=== PATIENT | male | born 1950 | race Caucasian/White ===

== ENCOUNTER → 2023-06-12 11:00 | Outpatient (REF) | payer MEDICARE, BC, SELFPAY | LOC: HWRAD 11:00 | PROVIDERS: ATTENDING PHYSICIAN Nurse Practitioner | DX: Z01.818 Encounter for other preprocedural examination (principal); G56.82 Other specified mononeuropathies of left upper limb | CPT/HCPCS: 73030 ==

== ENCOUNTER → 2023-07-27 07:43 | Outpatient (REF) | payer MEDICARE, BC, SELFPAY ==
[2023-07-27 10:29] LABS: % Basophils 0.9 % (0-2); % Eosinophils 2.8 % (0-6); % Immature Granulocytes 0.6 % (0-0.5); % Lymphocytes 18.2 % (20.5-51.1); % Monocytes 7.7 % (1.7-9.3); % Neutrophils 69.8 % (42.2-75.2); Absolute Basophils 0.1 10^3/uL (0-0.2); Absolute Eosinophils 0.2 10^3/uL (0-0.7); Absolute Lymphocytes 1.3 10^3/uL (1.2-3.4); Absolute Monocytes 0.5 10^3/uL (0.1-0.6); Absolute Neutrophils 4.8 10^3/uL (1.4-6.5); Hematocrit 36.3 % (39.0-52.0); Hemoglobin 12.4 g/dL (13.0-18.0); Mean Corp Hgb Conc. 34.2 g/dL (33.0-37.0); Mean Corpuscular Hgb 32.8 pg (27.0-31.0); Mean Platelet Volume 12.1 fL (7.4-10.4); Nucleated Red Blood Cells % 0 % (-); Platelet Count 108 10^3/uL (130-400); Red Blood Cell Count 3.78 10^6/uL (4.70-6.10); Red Cell Dist. Width 12.5 % (11.5-14.5); White Blood Cell Count 6.9 10^3/uL (4.8-10.8)
[2023-07-27 10:48] LABS: ALT (SGPT) 19 U/L (0-50); AST (SGOT) 22 U/L (17-59); Albumin 4.2 g/dl (3.5-5.0); Alkaline Phosphatase 87 U/L (38-126); Blood Urea Nitrogen 17 mg/dl (9-20); Calcium 9.3 mg/dl (8.4-10.2); Carbon Dioxide 23 mmol/L (22-30); Chloride 110 mmol/L (98-107); Glucose 147 mg/dl (70-99); HDL Cholesterol 55 mg/dl; Sodium 138 mmol/L (135-145); Total Bilirubin 0.7 mg/dl (0.2-1.3); Total Protein 7.1 g/dl (6.3-8.2); eGFR > 60.00
[2023-07-27 10:58] LABS: LDL Cholesterol, Calculated 58 mg/dl; Total Cholesterol 136 mg/dl (50-199); Triglyceride 118 mg/dl (10-149); Very Low Density Lipoprotein 23 mg/dl (0-30)
[2023-07-27 11:07] LABS: PSA, Total - Screen 0.26 ng/ml (0.0-4.0); TSH 0.37 uIU/ml (0.47-4.68)
[2023-07-28 14:35] LABS: Glycohemoglobin (HgbA1c) 6.2 % (4.0-5.6)
== END ==
LOC: HWLAB 07:43
PROVIDERS: ATTENDING PHYSICIAN Nurse Practitioner
DX: Z01.818 Encounter for other preprocedural examination (principal); H40.9 Unspecified glaucoma; E11.9 Type 2 diabetes mellitus without complications; I10 Essential (primary) hypertension; K21.9 Gastro-esophageal reflux disease without esophagitis; N40.1 Benign prostatic hyperplasia with lower urinary tract symptoms; Z12.5 Encounter for screening for malignant neoplasm of prostate
CPT/HCPCS: 36415; 80053; 80061; 83036; 84443; 85025; G0103

== ENCOUNTER → 2023-08-16 07:47 | Outpatient (REF) | payer MEDICARE, BC, SELFPAY | LOC: RAD 07:47 | PROVIDERS: ATTENDING PHYSICIAN Physician Assistant Surgical; FAMILY PHYSICIAN Internal Medicine; REFERRING PHYSICIAN Specialist | DX: M75.42 Impingement syndrome of left shoulder (principal); M25.511 Pain in right shoulder | CPT/HCPCS: 76881 ==

== ENCOUNTER → 2024-01-29 07:49 | Outpatient (REF) | payer MEDICARE, BC, SELFPAY ==
[2024-01-29 09:44] LABS: Iron 78 ug/dl (49-181)
[2024-01-29 09:54] LABS: Percent Saturation 26 % (20-50); Total Iron Binding Capacity 294 ug/dl (261-462)
[2024-01-29 10:29] LABS: Glycohemoglobin (HgbA1c) 6.1 % (4.0-5.6)
[2024-01-29 13:01] LABS: Vitamin B12 930 pg/ml (239-931)
== END ==
LOC: HWLAB 07:49
PROVIDERS: ATTENDING PHYSICIAN Internal Medicine Gastroenterology; FAMILY PHYSICIAN Internal Medicine
DX: D50.9 Iron deficiency anemia, unspecified (principal); E11.9 Type 2 diabetes mellitus without complications; Z00.00 Encounter for general adult medical examination without abnormal findings; R53.83 Other fatigue; E78.5 Hyperlipidemia, unspecified; K22.2 Esophageal obstruction
CPT/HCPCS: 36415; 82607; 82728; 83036; 83540; 83550; 84443

== ENCOUNTER → 2024-03-15 07:06 | Outpatient (REF) | payer MEDICARE, BC, SELFPAY | LOC: HWRCS 07:06 | PROVIDERS: ATTENDING PHYSICIAN Internal Medicine Cardiovascular Disease; FAMILY PHYSICIAN Internal Medicine | DX: Z95.0 Presence of cardiac pacemaker (principal); E11.9 Type 2 diabetes mellitus without complications; I10 Essential (primary) hypertension; I49.5 Sick sinus syndrome; Z82.49 Family history of ischemic heart disease and other diseases of the circulatory system; I49.3 Ventricular premature depolarization; I34.0 Nonrheumatic mitral (valve) insufficiency | CPT/HCPCS: 93306 ==

== ENCOUNTER 2024-03-29 07:46 | Day surgery (SDC) | payer MEDICARE, BC, SELFPAY ==
[2024-03-21 10:22] VITALS: BMI 24.4
[2024-03-29] VITALS (9 sets, daily range): BP systolic 128–145; BP diastolic 55–73; BMI 24.1
[2024-03-29 08:55] LABS: Glucose - Point of Care 133 mg/dl (70-99)
--- NOTE | 2024-03-29 11:05 | PTCARENOTE ---
Dr Carbajal at pt bedside speaking to pt.
--- NOTE | 2024-03-29 17:15 | ITS.CL.PACE ---
Change Management Analyst - Pacemaker Implant
Pacemaker Implant
Procedure Report:
Date of Procedure: March 29, 2024.
Procedures: Dual chamber pacemaker generator change. Pacemaker pulse generator explantation and pacemaker pulse generator implantation.
Indication: Pacemaker at [facility] from natural battery depletion. 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
Performing physician: Cedric Carbajal MD, [facility].
Implant: Pacemaker Pulse Generator: Medtronic; Model# [id number]; Serial# [id number].
Explanted Pacemaker Pulse Generator (Implanted 05/10/2013): Medtronic; Model# [id number]; Serial# [id number].
Retained Leads (Implanted 05/10/2013):
RA Lead: Medtronic; Model# [id number]; Serial# [id number].
RV Lead: Medtronic; Model# [id number]; Serial# [id number].
Technique: A time out was performed. The procedure site was identified. The patient was anesthetized by the anesthesia service. Preoperative cefazolin was administered prior to skin incision. The patient was prepped and draped in the usual fashion.
Local anesthetic was applied to the left prepectoral subcutaneous tissue. A 3 inch incision was made over the pulse generator. The capsule was entered with Bovie cautery. The old pacemaker pulse generator was explanted. No Bovie cautery was applied
to the lead system. The leads were appropriately attached to the new device. The pocket was irrigated with antibiotic solution. Hemostasis was excellent. The device and leads were placed in the pocket. The incision was closed in three layers with
absorbable suture. Steri-strips and an Aquacel dressing were applied. The estimated blood loss was less than 5 mL. There were no complications. No fluoroscopy.
Lead Analysis:
RA lead: P: 0.8 mV; Threshold: 1 V @ 0.4 ms; Impedance: 418 ohms.
RV lead: R: 3.8 mV; Threshold: 1 V @ 0.4 ms; Impedance: 418 ohms.
Final Programming: DDD 60 - 150 bpm.
Conclusion: Uncomplicated Medtronic pacemaker change. The pacemaker is MRI conditional.
Recommendation: Routine post pacemaker care.
cc: Darrel Husain MD and Arsenio Higginbotham MD.
== END 2024-03-29 12:22 | disposition home or self-care (01) ==
LOC: CATH 07:46
PROVIDERS: ATTENDING PHYSICIAN Internal Medicine Cardiovascular Disease; FAMILY PHYSICIAN Internal Medicine; OTHER PHYSICIAN Internal Medicine Cardiovascular Disease
DX: Z45.010 Encounter for checking and testing of cardiac pacemaker pulse generator [battery] (principal); I44.2 Atrioventricular block, complete; I47.20 Ventricular tachycardia, unspecified; I10 Essential (primary) hypertension; E78.5 Hyperlipidemia, unspecified; I25.10 Atherosclerotic heart disease of native coronary artery without angina pectoris; I34.0 Nonrheumatic mitral (valve) insufficiency; E11.9 Type 2 diabetes mellitus without complications; K21.9 Gastro-esophageal reflux disease without esophagitis; N40.0 Benign prostatic hyperplasia without lower urinary tract symptoms; Z79.82 Long term (current) use of aspirin; Z79.84 Long term (current) use of oral hypoglycemic drugs
CPT/HCPCS: 33228; 82962; C1785

== ENCOUNTER → 2024-08-16 07:18 | Outpatient (REF) | payer MEDICARE, BC, SELFPAY ==
[2024-08-16 10:00] LABS: AST (SGOT) 22 U/L (17-59); Albumin 4.3 g/dl (3.5-5.0); Alkaline Phosphatase 67 U/L (38-126); Blood Urea Nitrogen 15 mg/dl (9-20); Carbon Dioxide 24 mmol/L (22-30); Glucose 133 mg/dl (70-99); Total Bilirubin 0.7 mg/dl (0.2-1.3); Total Cholesterol 131 mg/dl (50-199); Total Protein 7.2 g/dl (6.3-8.2); Triglyceride 116 mg/dl (10-149); Very Low Density Lipoprotein 23 mg/dl (0-30); eGFR > 60.00
[2024-08-16 10:09] LABS: ALT (SGPT) 23 U/L (0-50); Calcium 9.5 mg/dl (8.4-10.2); Chloride 110 mmol/L (98-107); HDL Cholesterol 51 mg/dl; LDL Cholesterol, Calculated 57 mg/dl; Sodium 144 mmol/L (135-145)
[2024-08-16 10:25] LABS: % Basophils 1.2 % (0-2); % Eosinophils 4.8 % (0-6); % Immature Granulocytes 0.8 % (0-0.5); % Lymphocytes 23.4 % (20.5-51.1); % Monocytes 7.3 % (1.7-9.3); % Neutrophils 62.5 % (42.2-75.2); Absolute Basophils 0.1 10^3/uL (0-0.2); Absolute Eosinophils 0.3 10^3/uL (0-0.7); Absolute Lymphocytes 1.2 10^3/uL (1.2-3.4); Absolute Monocytes 0.4 10^3/uL (0.1-0.6); Absolute Neutrophils 3.3 10^3/uL (1.4-6.5); Hematocrit 37.7 % (39.0-52.0); Hemoglobin 12.7 g/dL (13.0-18.0); Mean Corp Hgb Conc. 33.7 g/dL (33.0-37.0); Mean Corpuscular Hgb 32.7 pg (27.0-31.0); Mean Corpuscular Volume 97.2 fL (80.0-94.0); Mean Platelet Volume 12.1 fL (7.4-10.4); Nucleated Red Blood Cells % 0 % (-); Platelet Count 110 10^3/uL (130-400); Red Blood Cell Count 3.88 10^6/uL (4.70-6.10); Red Cell Dist. Width 12.6 % (11.5-14.5); White Blood Cell Count 5.2 10^3/uL (4.8-10.8)
[2024-08-16 10:27] LABS: PSA, Total - Screen 0.24 ng/ml (0.0-4.0); TSH 0.61 uIU/ml (0.47-4.68)
[2024-08-16 12:04] LABS: Glycohemoglobin (HgbA1c) 6.2 % (4.0-5.6)
== END ==
LOC: HWLAB 07:18
PROVIDERS: ATTENDING PHYSICIAN Internal Medicine
DX: I10 Essential (primary) hypertension (principal); E78.5 Hyperlipidemia, unspecified; R53.83 Other fatigue; E05.90 Thyrotoxicosis, unspecified without thyrotoxic crisis or storm; E11.9 Type 2 diabetes mellitus without complications; Z00.00 Encounter for general adult medical examination without abnormal findings; Z12.5 Encounter for screening for malignant neoplasm of prostate
CPT/HCPCS: 36415; 80053; 80061; 83036; 84443; 85025; G0103

== ENCOUNTER 2024-08-29 00:59 | Emergency (ER) | payer MEDICARE, BC, SELFPAY ==
[2024-08-29 01:01] VITALS: BP 155/101
[2024-08-29 01:24] VITALS: BP 159/72
[2024-08-29 01:25] VITALS: BMI 24.6
[2024-08-29 01:58] LABS: % Basophils 1.1 % (0-2); % Eosinophils 4.1 % (0-6); % Immature Granulocytes 0.8 % (0-0.5); % Lymphocytes 22.2 % (20.5-51.1); % Monocytes 7.3 % (1.7-9.3); % Neutrophils 64.5 % (42.2-75.2); Absolute Basophils 0.1 10^3/uL (0-0.2); Absolute Eosinophils 0.3 10^3/uL (0-0.7); Absolute Immature Granulocytes 0.1 10^3/uL (0-0.05); Absolute Lymphocytes 1.5 10^3/uL (1.2-3.4); Absolute Monocytes 0.5 10^3/uL (0.1-0.6); Absolute Neutrophils 4.3 10^3/uL (1.4-6.5); Hematocrit 34.6 % (39.0-52.0); Hemoglobin 12.2 g/dL (13.0-18.0); Mean Corp Hgb Conc. 35.3 g/dL (33.0-37.0); Mean Corpuscular Hgb 33.3 pg (27.0-31.0); Mean Corpuscular Volume 94.5 fL (80.0-94.0); Mean Platelet Volume 11.5 fL (7.4-10.4); Nucleated Red Blood Cells % 0 % (-); Platelet Count 115 10^3/uL (130-400); Red Blood Cell Count 3.66 10^6/uL (4.70-6.10); Red Cell Dist. Width 12.4 % (11.5-14.5); White Blood Cell Count 6.6 10^3/uL (4.8-10.8)
[2024-08-29 02:00] VITALS: BP 141/94
[2024-08-29 02:00] LABS: ALT (SGPT) 31 U/L (0-50); AST (SGOT) 28 U/L (17-59); Albumin 4.3 g/dl (3.5-5.0); Alkaline Phosphatase 70 U/L (38-126); Blood Urea Nitrogen 17 mg/dl (9-20); Calcium 9.5 mg/dl (8.4-10.2); Carbon Dioxide 24 mmol/L (22-30); Chloride 112 mmol/L (98-107); Estimated Creatinine Clearance 100 ml/min; Glucose 138 mg/dl (70-99); Potassium 4.1 mmol/L (3.5-5.1); Sodium 144 mmol/L (135-145); Total Bilirubin 0.9 mg/dl (0.2-1.3); Total Protein 7.1 g/dl (6.3-8.2); eGFR > 60.00
--- NOTE | 2024-08-29 02:38 | ED.GENMED ---
History of Present Illness
General
Chief Complaint: Male Genito-Urinary Symptoms
Time Seen by Provider: 08/29/24 02:16
History of Present Illness
History of Present Illness:
see MDM
Past History
Past History
ED Past Medical History: Arrthythmia (Complete heart block), Asthma, GERD, Hypercholesterolemia, NIDDM, Valvular disease (Mitral valve disorder) and Other (enlarged prostate, Kidney stones)
ED Past Surgical History: Cardiac (Pacemaker), Cholecystectomy and Urological (Followed by Dr. Navarrete for enlarged prostate, last visit last fall. TURP)
Social History
Tobacco: Non-smoker
Alcohol: Daily (Wine 3 glasses)
Drug: None
Personal:
Living: with family
Employment: Retired
Family History
Family History: Other (Noncontributory)
Phy Exam
Physical Exam
Physical Exam:
see MDM
Course
Orders/Labs/Results
Orders:
Orders
08/29/24 01:42
CBC/With Diff [Complete Blood Count/With Diff] Urgent
Comprehensive Metabolic Panel Urgent
08/29/24 02:24
Bladder Scan- Treatment ONCE
08/29/24 02:37
Urinalysis Reflex To Culture Urgent
Date Specimen was Collected: 08/29/24
Time Specimen was Collected: 02:35
Urine Microscopic Reflex Cult Urgent
08/29/24 02:42
CT Abd/pel Without Iv Or Oral Urgent
Comment:
Reason For Exam: urinary retention; suspected bladder stones
Abnormal Lab Results
08/29/24 08/29/24
01:42 02:37
RBC 3.66 L 10^6/uL
(4.70-6.10)
Hgb 12.2 L g/dL
(13.0-18.0)
Hct 34.6 L %
(39.0-52.0)
MCV 94.5 H fL
(80.0-94.0)
MCH 33.3 H pg
(27.0-31.0)
Plt Count 115 L 10^3/uL
(130-400)
MPV 11.5 H fL
(7.4-10.4)
Abs Immat Gran (auto) 0.1 H 10^3/uL
(0-0.05)
Immature Gran % 0.8 H %
(0-0.5)
Chloride 112 H mmol/L
(98-107)
Glucose 138 H mg/dl
(70-99)
Ur Occult Blood Reflex 3+ A
(Negative)
Urine RBC 16-20 A /HPF
(0-2)
Urine Albumin (Reflex) 1+ A
(Neg - Trace)
08/29/24 01:42
08/29/24 01:42
Vital Signs
Initial and Last Documented VS:
Initial Vital Signs
Temp Pulse Resp BP Pulse Ox
36.4 C 65 21 155/101 99
08/29/24 01:01 08/29/24 01:01 08/29/24 01:01 08/29/24 01:01 08/29/24 01:01
Last Documented Vital Signs
Temp Pulse Resp BP Pulse Ox
36.4 C 71 17 168/82 97
08/29/24 01:01 08/29/24 02:45 08/29/24 02:45 08/29/24 02:39 08/29/24 02:45
MDM/Problems Addressed
Differential Diagnosis Includes:
bladder stone, urinary retention, UTI
MDM/Problems Addressed:
Note:
CHIEF COMPLAINT(S)
Urinary retention and suspicion of kidney stones.
HISTORY OF PRESENT ILLNESS
The patient is a 74-year-old male with a history of kidney stones, presenting with urinary retention that began earlier today. He noted difficulty urinating despite drinking two liters of water to prevent kidney stones. The patient described the
sensation as if something was 'trying to get out,' likely suggesting obstruction. Around dinnertime, the patient began experiencing significant difficulty with urination but denied associated symptoms such as nausea, vomiting, fever, chills, or
visible blood in the urine.
The patients medical history includes previous bladder stones, which were surgically removed three and a half years ago through cystoscopy due to the presence of stones cutting into the bladder. He also has a history of benign prostatic hyperplasia
and underwent a transurethral resection of the prostate (TURP) several years ago. The patient is currently on Finasteride to manage regrowth of the prostate.
The patient expressed concern regarding whether a Ramirez catheter would be necessary, given previous experiences of urinary retention post-surgery and having required a Ramirez in the past. The patient also reported a history of catheter blockage
issues.
There was no indication of infection as the patients urine appeared clear. Plans were discussed for potential bladder drainage via catheterization, diagnostic imaging of the abdomen to assess for kidney or bladder stones, and laboratory tests to
evaluate kidney function.
CHRONIC MEDICAL CONDITIONS SIGNIFICANTLY AFFECTING CARE
- Benign prostatic hyperplasia
- History of kidney stones
PHYSICAL EXAM
- General: Nursing notes reviewed and vital signs reviewed.
heart: regular
lungs: clear
no distress
abdomen: soft mild bladder distension; nontender;
: normal inspectoin, no bleeding
PROBLEM LIST
Acute:
- Urinary retention
- Suspected kidney or bladder stones
Chronic:
- Benign prostatic hyperplasia
PLAN
- Insert Ramirez catheter to drain the bladder and assess relief of symptoms.
- Conduct blood tests to evaluate kidney function, specifically creatinine levels.
- Perform imaging studies to visualize the abdomen, including the kidneys and bladder, to check for stones.
- Consult urology to determine the need for further interventions and address potential complications related to catheterization or stone passage.
DIFFERENTIAL DIAGNOSIS
The Differential Diagnosis includes, in no particular order and is not limited to:
1. Kidney stones
2. Bladder stones
3. Benign prostatic hyperplasia-related obstruction
4. Neurogenic bladder
5. Urinary tract infection
6. Urethral stricture
7. Prostatitis
8. Hydronephrosis
9. Acute renal failure
10. Malignancy of the urinary tract
CARE-UPDATE
08/29/24 - 04:07
pt's bladder scan on arrival was nearing 800 ml.
i spoke with dr. branch regarding this patient as he has complex history and wants to avoid catheter if possible.
he was ok with this plan to straight cath to drain the bladder and then pull the catheter out so as not to creat senior living issues with neurogenic bladder.
The scan did not reveal any stones in the urethra, he did have bladder distention but this was prior to passing the stone. Urine analysis shows no signs of infection.
after the patient returned from CT scan, he passed a stone. he was able to void 'a good amount' bu this PVR was 500ml. A Ramirez catheter was placed to assist with bladder emptying, and the patient plans to have the catheter removed to assess normal
voiding function. i offered to watch him here to see if he could void on his own again after the ramirez was removed but he would prefer to do this at home.
There is a plan for the patient to increase fluid intake and monitor for any urinary retention at home. The patient is instructed to contact Dr. Navarrete to update on the hospital visit and to return if urinary retention occurs again. Antibiotics
are not deemed necessary at this time, and no medication adjustments are required.
Note:
Disposition:
DIAGNOSIS
- Acute urinary retention [R33.8]
- Bladder stone [N21.0]
- Neurogenic bladder [N31.9]
SUMMARY OF ENCOUNTER
The patient, with a history of bladder stones and neurogenic bladder, presented for urinary retention, suspecting a bladder stone. A CT scan indicated bladder distension but no obstructive uropathy. During the visit, the patient passed a stone.
Despite passing the stone, the patient had a post-void residual (PVR) of 500 mL, prompting the insertion of a Ramirez catheter, which was successfully placed, albeit with difficulty. The catheter potentially facilitated the movement of another stone
into the bladder lumen.
ASSESSMENT
The patients urinary retention is likely due to a combination of bladder stones and neurogenic bladder, exacerbated by his history of bladder issues.
PLAN
The plan is to leave the Ramirez catheter in place to ensure proper bladder drainage and to monitor for any recurrences of urinary retention. The patient is advised to increase fluid intake and remain vigilant for signs of urinary retention.
INDEPENDENT INTERPRETATION OF TESTS
- My independent interpretation of the CT scan shows bladder distension but no obstructive uropathy.
- My independent interpretation of the urine analysis shows no signs of infection.
PROCEDURES
- Ramirez catheter insertion performed to drain the bladder with noted difficulty.
PATIENT EDUCATION AND COUNSELING
The patient was informed about the importance of increasing fluid intake and the necessity of monitoring for any signs of urinary retention. Discussed the potential complications of leaving the Ramirez catheter in place and instructed on the signs
that might require immediate medical attention.
FOLLOW-UP INSTRUCTIONS
The patient is well connected with urology, and no further immediate follow-up instructions were specified other than monitoring his condition.
MEDICAL DECISION MAKING
The patient presented with acute urinary retention, compounded by chronic problems such as bladder stones and neurogenic bladder. CT imaging and urine analysis were interpreted to guide management, confirming bladder distension without obstruction
and the absence of infection. Given the complex history of urinary issues, a Ramirez catheter was placed despite the patients known difficulty with catheter use, balancing the need for drainage against potential discomfort and complications.
*Pulse Oximetry
Patient hypoxic: no
*Critical Care Note
Total Time (30-74mins, 75-104mins- exclusive of procedures): Not Applicable
ED Attending Note
-
Portions of this chart may have been created with voice recognition software.� Occasional wrong word or��sound alike� substitutions may have occurred due to the inherent limitations of voice recognition software.
Discharge Plan
Departure
Patient Disposition: Home (Routine Discharge)
Date of Disposition: 08/29/24
Time of Disposition: 04:13
Patient with high blood pressure during this ER visit?: No
Condition: Fair
Covid-19: Not Applicable
Discharge Problem:
Acute urinary retention, Bladder calculus
Instructions: Urinary Retention (DC)
Prescriptions:
No Action
aspirin 81 MG tablet,delayed release (DR/EC)
81 mg PO DAILY
metoprolol succinate 25 MG tablet extended release 24 hr
25 mg PO QPM
ascorbic acid (vitamin C) [Vitamin C] 500 MG tablet
500 mg PO QPM
finasteride 5 MG tablet
5 mg PO DAILY
latanoprost (PF) 0.005 % Dropperette
1 drp BOTH EYES QPM
brinzolamide 1 % Drops,Suspension
1 drp BOTH EYES TID
pantoprazole 40 mg tablet,delayed release (DR/EC)
40 mg PO DAILY
ferrous sulfate 325 mg (65 mg iron) Tablet
325 mg PO 2XD
folic acid 1 mg tablet
1 mg PO DAILY
cyanocobalamin (vitamin B-12) 1,000 mcg Tablet, Sublingual
1,000 mcg SUBLINGUAL DAILY
albuterol sulfate 90 mcg/actuation Hfa Aerosol Inhaler
2 puff INHALATION Q6HPRN PRN (Reason: SOB)
rosuvastatin [Crestor] 10 mg Tablet
10 mg PO DAILY
Janumet 50-500 mg tablet
1 tab PO BID
Centrum Silver Men [id number] mcg Tablet
1 tab PO DAILY
Qvar RediHaler 80 mcg/actuation Hfa Aerosol Breath Activated
2 inh INHALATION DAILY
Rhopressa 0.02 % Drops
1 drp OPHTHALMIC (EYE) QPM
prednisolone acetate 1 % Drops,Suspension
1 drp OPHTHALMIC (EYE) TID
ketorolac 0.5 % Drops
1 drp OPHTHALMIC (EYE) TID
Referrals:
Darrel Husain MD [Family Provider, Internal Medicine] - Follow up in 2-3 days
Activity Restrictions/Additional Instructions:
You were able to pass a bladder stone but you are still having urinary retention symptoms. So we placed a Ramirez to drain your bladder which you had requested be removed before discharge. We offered to have you stay in the hospital for a couple of
hours to see if you could void on your own but you would prefer to go home. He will follow-up with Dr. Navarrete. Your urine does not look infected and your kidney function is normal. Return for any bladder distention or urinary retention, fever
or chills, bloody urine or any concern
Interventions
Interventions:
*Risk Screen - Suicide Last Done: 08/29/24 01:01
*General Assessment Last Done: 08/29/24 02:01
*Neglect/Abuse Screening Last Done: 08/29/24 02:01
*ED- Fall Risk Assessment Last Done: 08/29/24 01:50
*ED COVID-19 Vaccine History Last Done: 08/29/24 01:50
ED-Male Genitourinary Assessment Last Done: 08/29/24 01:50
Discharge Date and Time
Print Language: GEORGIAN
[2024-08-29 02:39] VITALS: BP 168/82
[2024-08-29 03:01] LABS: Urine Albumin 1+ (Neg - Trace); Urine Bilirubin Negative (Negative); Urine Character Clear (Clear); Urine Color Yellow; Urine Glucose Negative (Negative); Urine Ketone Negative (Negative); Urine Leukocyte Negative (Negative); Urine Nitrite Negative (Negative); Urine Occult Blood 3+ (Negative); Urine Urobilinogen Negative (Neg - 1+)
[2024-08-29 03:12] LABS: Urine Red Blood Cell 16-20 /HPF (0-2)
== END 2024-08-29 04:13 | disposition home or self-care (01) ==
LOC: EMR 00:59
PROVIDERS: Emergency Medicine; Physician Assistant; EMERGENCY PHYSICIAN Emergency Medicine; FAMILY PHYSICIAN Internal Medicine
DX: N40.1 Benign prostatic hyperplasia with lower urinary tract symptoms (principal); R33.8 Other retention of urine; N21.0 Calculus in bladder; N31.9 Neuromuscular dysfunction of bladder, unspecified; Z87.442 Personal history of urinary calculi
CPT/HCPCS: 99285; 51798; 51702; 74176; 80053; 81003; 81015; 85025

== ENCOUNTER → 2024-09-04 10:53 | Outpatient (REF) | payer MEDICARE, BC, SELFPAY | LOC: CLAB 10:53 | PROVIDERS: ATTENDING PHYSICIAN Specialist | DX: N20.0 Calculus of kidney (principal) | CPT/HCPCS: 82365 ==

== ENCOUNTER → 2024-10-17 12:46 | Outpatient (REF) | payer MEDICARE, BC, SELFPAY ==
[2024-10-17 15:55] LABS: Uric Acid 6.2 mg/dl (3.5-8.5)
== END ==
LOC: HWLAB 12:46
PROVIDERS: ATTENDING PHYSICIAN Internal Medicine
DX: Z00.00 Encounter for general adult medical examination without abnormal findings (principal); E11.9 Type 2 diabetes mellitus without complications; I10 Essential (primary) hypertension; Z95.0 Presence of cardiac pacemaker; J45.30 Mild persistent asthma, uncomplicated; J39.8 Other specified diseases of upper respiratory tract; K21.9 Gastro-esophageal reflux disease without esophagitis; N20.0 Calculus of kidney; D61.818 Other pancytopenia
CPT/HCPCS: 36415; 84550

== ENCOUNTER 2024-12-21 20:42 | Emergency (ER) | payer MEDICARE, BC, SELFPAY ==
[2024-12-21 20:46] VITALS: BP 166/87
[2024-12-21 21:41] LABS: Urine Character Clear (Clear)
[2024-12-21 21:52] LABS: Hematocrit 35.0 % (39.0-52.0); Hemoglobin 12.0 g/dL (13.0-18.0); Mean Corp Hgb Conc. 34.3 g/dL (33.0-37.0); Mean Corpuscular Volume 93.1 fL (80.0-94.0); Nucleated Red Blood Cells % 0 % (-); Platelet Count 114 10^3/uL (130-400); Red Cell Dist. Width 12.3 % (11.5-14.5)
[2024-12-21 21:56] LABS: Urine Red Blood Cell 0-2 /HPF (0-2); Urine Squamous Cell 0-2 /LPF (Few); Urine White Cell None Seen /HPF (0-5)
[2024-12-21 21:57] LABS: ALT (SGPT) 22 U/L (0-50); AST (SGOT) 23 U/L (17-59); Albumin 4.5 g/dl (3.5-5.0); Alkaline Phosphatase 72 U/L (38-126); Blood Urea Nitrogen 15 mg/dl (9-20); Calcium 9.1 mg/dl (8.4-10.2); Carbon Dioxide 23 mmol/L (22-30); Chloride 108 mmol/L (98-107); Glucose 123 mg/dl (70-99); Potassium 4.1 mmol/L (3.5-5.1); Sodium 139 mmol/L (135-145); Total Protein 7.3 g/dl (6.3-8.2); eGFR > 60.00
--- NOTE | 2024-12-22 00:17 | ED.GENMED ---
History of Present Illness
General
Chief Complaint: Male Genito-Urinary Symptoms
Source: patient
Exam Limitations: none
Time Seen by Provider: 12/21/24 23:23
Nursing documentation reviewed up to this point in time: agreed with
History of Present Illness
History of Present Illness:
Patient to ED with report of urinary frequency, sensation of not emptying bladder. He has had similar symptoms in the past, associated with an obstructing stone. Symptoms started today. Denies fever/chills, n/v/d. To ED accompanied by spouse.
Past History
Past History
ED Past Medical History: Arrthythmia (Complete heart block), Asthma, GERD, Hypercholesterolemia, NIDDM, Valvular disease (Mitral valve disorder) and Other (enlarged prostate, Kidney stones)
ED Past Surgical History: Cardiac (Pacemaker), Cholecystectomy and Urological (Followed by Dr. Navarrete for enlarged prostate, last visit last fall. TURP)
Social History
Tobacco: Non-smoker
Alcohol: Daily (Wine 3 glasses)
Drug: None
Personal:
Living: with family
Employment: Retired
Family History
Family History: Other (Noncontributory)
Review of Systems
Review of Systems
Allergies reviewed?: Yes
All Other Systems: ROS reviewed and negative except as documented in HPI and ROS
Constitutional: Reports no symptoms
EENT: Reports no symptoms
Respiratory: Reports no symptoms
Cardiac: Reports no symptoms
ABD/GI: Reports no symptoms
: Reports frequency, difficulty voiding and urgency
Musculoskeletal: Reports no symptoms
Skin: Reports no symptoms
Neurological: Reports no symptoms
Psychiatric: Reports no symptoms
Phy Exam
General Physical Exam
General Presentation: well appearing and mild distress
General age: appears stated age
General Skin: warm
General Habitus: normal
General Mental: alert
Cardiovascular Exam
Cardiovascular Exam: regular rate/rhythm and no edema
Gastrointestinal Exam
Gastrointestinal Exam: non tender, soft, no pulsatile mass and non distended
Musculoskeletal Exam
Musculoskeletal Exam: full ROM and neuro vasc intact
Skin Exam
Skin Exam: normal color, warm/dry and no rash
Psychiatric Exam
Psychiatric Exam: normal mood/affect
Course
Orders/Labs/Results
Orders:
Orders
12/21/24 21:01
Complete Blood Count/With Diff Urgent
Comprehensive Metabolic Panel Urgent
Urinalysis Urgent
Date Specimen was Collected: 12/21/24
Time Specimen was Collected: 20:50
Urine Microscopic Urgent
Date Specimen was Collected: 12/21/24
Time Specimen was Collected: 20:50
12/21/24 23:27
Bladder Scan- Treatment ONCE
Abnormal Lab Results
12/21/24
21:01
RBC 3.76 L 10^6/uL
(4.70-6.10)
Hgb 12.0 L g/dL
(13.0-18.0)
Hct 35.0 L %
(39.0-52.0)
MCH 31.9 H pg
(27.0-31.0)
Plt Count 114 L 10^3/uL
(130-400)
MPV 11.1 H fL
(7.4-10.4)
Lymphocytes % 19.3 L %
(20.5-51.1)
Chloride 108 H mmol/L
(98-107)
Glucose 123 H mg/dl
(70-99)
Urine Occult Blood 2+ A
(Negative)
Urine Albumin 1+ A
(Neg - Trace)
12/21/24 21:01
12/21/24 21:01
Vital Signs
Initial and Last Documented VS:
Initial Vital Signs
Temp Pulse Resp BP Pulse Ox
97.4 F 70 18 166/87 98
12/21/24 20:46 12/21/24 20:46 12/21/24 20:46 12/21/24 20:46 12/21/24 20:46
Last Documented Vital Signs
Temp Pulse Resp BP Pulse Ox
97.4 F 70 18 166/87 98
12/21/24 20:46 12/21/24 20:46 12/21/24 20:46 12/21/24 20:46 12/22/24 00:17
*Pulse Oximetry
SaO2: 98
Oxygen Mode of Delivery: Room air
Patient hypoxic: no
*Critical Care Note
Total Time (30-74mins, 75-104mins- exclusive of procedures): Not Applicable
Update Note
Update Note:
Patient to ED with report of urinary frequency, sensation of not emptying bladder. State he passed a kidney stone while in waiting room. Symptoms have subsided. Bladder scan confirms no urinary retention. No UTI evident UA. Patient reports he
is pain free. He has declined further imaging (US, CT). Would like to return home. He is in no distress. VSS. He is discharged home and will follow upw [facility] urologist. Given instructions on s/s to return to ED and he is agreeable to plan.
ED Attending Note
-
Portions of this chart may have been created with voice recognition software.� Occasional wrong word or��sound alike� substitutions may have occurred due to the inherent limitations of voice recognition software.
Discharge Plan
Departure
Patient Disposition: Home (Routine Discharge)
Date of Disposition: 12/22/24
Time of Disposition: 00:16
Patient with high blood pressure during this ER visit?: No
Condition: Good
Covid-19: Not Applicable
Discharge Problem:
Kidney stone
Instructions: Kidney stones in adults
Prescriptions:
No Action
aspirin 81 MG tablet,delayed release (DR/EC)
81 mg PO DAILY
metoprolol succinate 25 MG tablet extended release 24 hr
25 mg PO QPM
ascorbic acid (vitamin C) [Vitamin C] 500 MG tablet
500 mg PO QPM
finasteride 5 MG tablet
5 mg PO DAILY
latanoprost (PF) 0.005 % Dropperette
1 drp BOTH EYES QPM
brinzolamide 1 % Drops,Suspension
1 drp BOTH EYES TID
pantoprazole 40 mg tablet,delayed release (DR/EC)
40 mg PO DAILY
ferrous sulfate 325 mg (65 mg iron) Tablet
325 mg PO 2XD
folic acid 1 mg tablet
1 mg PO DAILY
cyanocobalamin (vitamin B-12) 1,000 mcg Tablet, Sublingual
1,000 mcg SUBLINGUAL DAILY
albuterol sulfate 90 mcg/actuation Hfa Aerosol Inhaler
2 puff INHALATION Q6HPRN PRN (Reason: SOB)
rosuvastatin [Crestor] 10 mg Tablet
10 mg PO DAILY
Janumet 50-500 mg tablet
1 tab PO BID
Centrum Silver Men [id number] mcg Tablet
1 tab PO DAILY
Qvar RediHaler 80 mcg/actuation Hfa Aerosol Breath Activated
2 inh INHALATION DAILY
Rhopressa 0.02 % Drops
1 drp OPHTHALMIC (EYE) QPM
prednisolone acetate 1 % Drops,Suspension
1 drp OPHTHALMIC (EYE) TID
ketorolac 0.5 % Drops
1 drp OPHTHALMIC (EYE) TID
Referrals:
Darrel Husain MD [Family Provider, Internal Medicine]
Activity Restrictions/Additional Instructions:
FOllow up with your urologist. Return to the emergency department for any changes in/worsening of your symptoms
Interventions
Interventions:
*Risk Screen - Suicide Last Done: 12/21/24 20:49
*General Assessment Last Done: 12/21/24 23:30
*Neglect/Abuse Screening Last Done: 12/21/24 20:49
*ED- Fall Risk Assessment Last Done: 12/21/24 23:30
*Nursing Disposition Last Done: 12/22/24 00:27
ED-Male Genitourinary Assessment Last Done: 12/21/24 23:30
Discharge Date and Time
Discharge Date/Time: 12/22/24 00:27
Print Language: TURKISH
== END 2024-12-22 00:27 | disposition home or self-care (01) ==
LOC: EMR 20:42
PROVIDERS: Emergency Medicine; EMERGENCY PHYSICIAN Student in an Organized Health Care Education/Training Program; FAMILY PHYSICIAN Internal Medicine
DX: N20.0 Calculus of kidney (principal); E11.9 Type 2 diabetes mellitus without complications; E78.00 Pure hypercholesterolemia, unspecified; I05.9 Rheumatic mitral valve disease, unspecified; J45.909 Unspecified asthma, uncomplicated; N40.0 Benign prostatic hyperplasia without lower urinary tract symptoms; K21.9 Gastro-esophageal reflux disease without esophagitis; Z87.442 Personal history of urinary calculi; Z79.82 Long term (current) use of aspirin; Z79.84 Long term (current) use of oral hypoglycemic drugs; Z95.0 Presence of cardiac pacemaker
CPT/HCPCS: 99283; 80053; 81003; 81015; 85025

== ENCOUNTER → 2025-02-06 08:04 | Outpatient (REF) | payer MEDICARE, BC, SELFPAY ==
[2025-02-06 11:02] LABS: Glycohemoglobin (HgbA1c) 6.2 % (4.0-5.9)
[2025-02-06 12:34] LABS: Microalbumin, Random Urine 1.1 mg/dl (0.6-1.7)
== END ==
LOC: HWLAB 08:04
PROVIDERS: ATTENDING PHYSICIAN Specialist; FAMILY PHYSICIAN Internal Medicine
DX: N20.0 Calculus of kidney (principal); E11.9 Type 2 diabetes mellitus without complications
CPT/HCPCS: 36415; 74018; 82043; 83036